=== PATIENT | female | born 1970 | race Caucasian/White ===

== ENCOUNTER 2020-10-11 04:37 | Inpatient (IN) ==
[2020-10-11 05:28] LABS: Basophils % 0.3 % (0.0-0.8); Hematocrit 44.6 VOL% (35.7-47.0); Hemoglobin 14.6 GM/DL (12.0-16.0); Immature Granulocytes % 0.8 %; Immature Granulocytes Absolute 0.03 #; Lymphocytes # 0.8 10*3/uL (1.4-4.0); Lymphocytes % 23.6 % (21.3-54.2); Mean Corpuscular HGB Conc 32.7 GM/DL (32-36); Mean Corpuscular Volume 90.3 FL (87-102); Mean Platelet Volume 10.8 FL (9.6-12.0); Monocytes % 9.3 % (1.7-12.7); Platelet Count 109 T/CUMM (130-400); Red Blood Count 4.94 MC/CUMM (3.8-5.5); White Blood Count 3.6 T/CUMM (4-12)
[2020-10-11 05:33] LABS: INR 0.9; Partial Thromboplastin Time 35.3 SECS (23.9-33.8)
[2020-10-11 05:44] LABS: Albumin 3.5 G/DL (3.4-5.0); Bilirubin,Total 0.9 MG/DL (0.20-1.00); Calcium 8.2 MG/DL (8.5-10.1); Osmolality,Calculated 266.2 MOS/KG (273-304); Potassium 4.2 MMOL/L (3.5-5.1); Total Protein 6.9 G/DL (6.4-8.2)
[2020-10-11] MEDS ORDERED: SODIUM CHLORIDE 0.9% 1,000 ML IV STA (05:52)
[2020-10-11] MEDS ORDERED: LEVOFLOXACIN INJ 750 MG/150 ML PREMIX IV STA (05:52)
[2020-10-11] MEDS ORDERED: DEXAMETHASONE 4 MG/1 ML VIAL IV STA (05:52)
[2020-10-11] MEDS ORDERED: DEXTROSE 50% 25 GM/50 ML VIAL IV PRN (07:36)
[2020-10-11] MEDS ORDERED: MELATONIN 3 MG TABLET PO PRN (07:36)
[2020-10-11] MEDS ORDERED: GLUCAGON 1 MG VIAL IM PRN (07:36)
[2020-10-11] MEDS ORDERED: ONDANSETRON 4 MG/2 ML VIAL IV PRN (07:37)
[2020-10-11] MEDS ORDERED: ACETAMINOPHEN 325 MG TABLET PO PRN (07:37)
[2020-10-11] MEDS ORDERED: BISACODYL 5 MG TABLET PO PRN (07:37)
[2020-10-11] MEDS ORDERED: NICOTINE 21 MG/24 HR PATCH TRANSDERM PRN (07:44)
[2020-10-11] MEDS: ENOXAPARIN 40 MG/0.4 ML SYRINGE SUBCUT SCH (08:21)
[2020-10-11] MEDS: SODIUM CHLORIDE 0.9% 1,000 ML IV SCH (08:21)
[2020-10-11] MEDS: DEXAMETHASONE 4 MG/1 ML VIAL IV SCH (08:49)
[2020-10-11] MEDS: CHOLECALCIFEROL 1,000 UNIT TABLET PO SCH (08:50)
[2020-10-11] MEDS: FAMOTIDINE 20 MG TABLET PO SCH ×2 (08:50→21:30)
[2020-10-11] MEDS: ASCORBIC ACID 500 MG TABLET PO SCH ×2 (08:50→21:30)
[2020-10-11] MEDS: CETIRIZINE 10 MG TABLET PO SCH (08:51)
[2020-10-11] MEDS: ZINC GLUCONATE 50 MG TABLET PO SCH (08:51)
[2020-10-11] MEDS ORDERED: PNEUMOCOCCAL VACCINE (13 VALENT) 0.5 ML SYRINGE IM ONE (10:00)
[2020-10-11] MEDS ORDERED: REMDESIVIR 200 MG in SODIUM CHLORIDE 0.9% 210 ML IV ONE (10:00)
[2020-10-11] MEDS: PRAMIPEXOLE 0.25 MG TABLET PO SCH (21:31)
[2020-10-12 05:17] LABS: Hematocrit 39.3 VOL% (35.7-47.0); Immature Granulocytes % 0.6 %; Immature Granulocytes Absolute 0.02 #; Lymphocytes # 1.2 10*3/uL (1.4-4.0); Lymphocytes % 37.9 % (21.3-54.2); Mean Corpuscular HGB Conc 32.1 GM/DL (32-36); Monocytes % 12.7 % (1.7-12.7); Neutrophils % 48.8 % (38.7-73.9); Red Blood Count 4.27 MC/CUMM (3.8-5.5); Red Cell Distribution Width 15.2 % (9.3-17.3); White Blood Count 3.2 T/CUMM (4-12)
[2020-10-12 05:36] LABS: Hemoglobin 12.6 GM/DL (12.0-16.0)
[2020-10-12 05:37] LABS: Platelet Count 113 T/CUMM (130-400)
[2020-10-12 05:40] LABS: Osmolality,Calculated 278.3 MOS/KG (273-304); Potassium 4.1 MMOL/L (3.5-5.1)
[2020-10-12 05:42] LABS: Ferritin 93.6 ng/ml (8-252)
[2020-10-12] MEDS: SODIUM CHLORIDE 0.9% 1,000 ML IV SCH (05:51)
[2020-10-12 06:13] LABS: Hypochromasia 1+; Microcytosis 1+; Platelet Estimate Adequate
[2020-10-12] MEDS ORDERED: ALBUTEROL INHALER 18 GM INH PRN (06:55)
[2020-10-12] MEDS ORDERED: NF- (Umeclidinium-Vilanterol [Anoro Ellipta] 62.5-25 mcg/actuation Bl INH SCH (07:00)
[2020-10-12] MEDS ORDERED: SODIUM CHLORIDE 0.9% 1,000 ML IV PRN ×2 (09:50→09:51)
[2020-10-12] MEDS: ASCORBIC ACID 500 MG TABLET PO SCH ×2 (10:18→20:31)
[2020-10-12] MEDS: DEXAMETHASONE 4 MG/1 ML VIAL IV SCH (10:18)
[2020-10-12] MEDS: FAMOTIDINE 20 MG TABLET PO SCH ×2 (10:18→20:31)
[2020-10-12] MEDS: ENOXAPARIN 40 MG/0.4 ML SYRINGE SUBCUT SCH (10:18)
[2020-10-12] MEDS: CETIRIZINE 10 MG TABLET PO SCH (10:19)
[2020-10-12] MEDS: ZINC GLUCONATE 50 MG TABLET PO SCH (10:19)
[2020-10-12] MEDS: CHOLECALCIFEROL 1,000 UNIT TABLET PO SCH (10:19)
[2020-10-12] MEDS: LEVOFLOXACIN INJ 750 MG/150 ML PREMIX IV SCH (10:55)
[2020-10-12] MEDS: REMDESIVIR 100 MG in SODIUM CHLORIDE 0.9% 100 ML IV SCH (12:54)
[2020-10-12 14:24] LABS: Folate 11.94 NG/ML (5.38-24.0)
[2020-10-12 18:59] VITALS: BP 98/78
[2020-10-12] MEDS: PRAMIPEXOLE 0.25 MG TABLET PO SCH (20:31)
[2020-10-13] MEDS: SODIUM CHLORIDE 0.9% 1,000 ML IV SCH ×2 (02:07→07:59)
[2020-10-13 05:45] LABS: Basophils % 0.3 % (0.0-0.8); Hematocrit 40.6 VOL% (35.7-47.0); Hemoglobin 12.5 GM/DL (12.0-16.0); Immature Granulocytes % 0.5 %; Immature Granulocytes Absolute 0.02 #; Lymphocytes # 1.6 10*3/uL (1.4-4.0); Lymphocytes % 40.5 % (21.3-54.2); Mean Corpuscular HGB Conc 30.8 GM/DL (32-36); Mean Corpuscular Volume 94.6 FL (87-102); Mean Platelet Volume 10.6 FL (9.6-12.0); Monocytes % 13.7 % (1.7-12.7); Platelet Count 148 T/CUMM (130-400); Red Blood Count 4.29 MC/CUMM (3.8-5.5); Red Cell Distribution Width 15.4 % (9.3-17.3); White Blood Count 3.9 T/CUMM (4-12)
[2020-10-13 05:54] LABS: Calcium 8.4 MG/DL (8.5-10.1); Osmolality,Calculated 276.4 MOS/KG (273-304); Potassium 4.1 MMOL/L (3.5-5.1)
[2020-10-13 06:13] LABS: Lymphocytes 40 % (20-55); Platelet Estimate Normal; Segmented Neutrophils 51 % (50-85); Total Cells Counted 100
[2020-10-13] MEDS: LEVOFLOXACIN INJ 750 MG/150 ML PREMIX IV SCH (08:35)
[2020-10-13] MEDS: ENOXAPARIN 40 MG/0.4 ML SYRINGE SUBCUT SCH ×2 (08:36→21:28)
[2020-10-13] MEDS: CHOLECALCIFEROL 1,000 UNIT TABLET PO SCH (08:37)
[2020-10-13] MEDS: CETIRIZINE 10 MG TABLET PO SCH (08:37)
[2020-10-13] MEDS: ASCORBIC ACID 500 MG TABLET PO SCH ×2 (08:37→21:28)
[2020-10-13] MEDS: DEXAMETHASONE 4 MG/1 ML VIAL IV SCH (08:37)
[2020-10-13] MEDS: FAMOTIDINE 20 MG TABLET PO SCH ×2 (08:37→21:28)
[2020-10-13] MEDS: ZINC GLUCONATE 50 MG TABLET PO SCH (08:38)
[2020-10-13] MEDS: REMDESIVIR 100 MG in SODIUM CHLORIDE 0.9% 100 ML IV SCH (12:18)
[2020-10-13] MEDS: PRAMIPEXOLE 0.25 MG TABLET PO SCH (21:28)
[2020-10-14 05:56] LABS: Basophils % 0.3 % (0.0-0.8); Hematocrit 38.3 VOL% (35.7-47.0); Hemoglobin 12.1 GM/DL (12.0-16.0); Immature Granulocytes % 0.3 %; Immature Granulocytes Absolute 0.01 #; Lymphocytes # 1.8 10*3/uL (1.4-4.0); Lymphocytes % 50.7 % (21.3-54.2); Mean Corpuscular HGB Conc 31.6 GM/DL (32-36); Mean Corpuscular Volume 92.1 FL (87-102); Mean Platelet Volume 10.3 FL (9.6-12.0); Monocytes % 13.5 % (1.7-12.7); Neutrophils % 35.2 % (38.7-73.9); Platelet Count 173 T/CUMM (130-400); Red Blood Count 4.16 MC/CUMM (3.8-5.5); Red Cell Distribution Width 15.3 % (9.3-17.3); White Blood Count 3.5 T/CUMM (4-12)
[2020-10-14 06:14] LABS: Calcium 8.1 MG/DL (8.5-10.1); Ferritin 61.4 ng/ml (8-252); Osmolality,Calculated 276.4 MOS/KG (273-304); Potassium 3.8 MMOL/L (3.5-5.1)
[2020-10-14 06:46] LABS: Band Neutrophils 1 % (0-10); Lymphocytes 45 % (20-55); Platelet Estimate Normal; Segmented Neutrophils 38 % (50-85); Total Cells Counted 100
[2020-10-14 06:47] LABS: Anisocytosis 1+; Macrocytosis 1+
[2020-10-14] MEDS: SODIUM CHLORIDE 0.9% 1,000 ML IV SCH ×3 (07:26→19:00)
[2020-10-14] MEDS: LEVOFLOXACIN INJ 750 MG/150 ML PREMIX IV SCH (08:10)
[2020-10-14] MEDS: ENOXAPARIN 40 MG/0.4 ML SYRINGE SUBCUT SCH ×2 (08:11→20:05)
[2020-10-14] MEDS: DEXAMETHASONE 4 MG/1 ML VIAL IV SCH (08:11)
[2020-10-14] MEDS: CHOLECALCIFEROL 1,000 UNIT TABLET PO SCH (08:12)
[2020-10-14] MEDS: ZINC GLUCONATE 50 MG TABLET PO SCH (08:12)
[2020-10-14] MEDS: FAMOTIDINE 20 MG TABLET PO SCH ×2 (08:12→20:05)
[2020-10-14] MEDS: ASCORBIC ACID 500 MG TABLET PO SCH ×2 (08:12→20:05)
[2020-10-14] MEDS: CETIRIZINE 10 MG TABLET PO SCH (08:13)
[2020-10-14] MEDS: REMDESIVIR 100 MG in SODIUM CHLORIDE 0.9% 100 ML IV SCH (14:08)
[2020-10-14] MEDS: PRAMIPEXOLE 0.25 MG TABLET PO SCH (20:05)
[2020-10-15 06:29] LABS: Basophils % 0.3 % (0.0-0.8); Eosinophils % 0.3 % (0.00-10.9); Hematocrit 38.3 VOL% (35.7-47.0); Hemoglobin 12.3 GM/DL (12.0-16.0); Immature Granulocytes % 0.3 %; Immature Granulocytes Absolute 0.01 #; Lymphocytes # 1.9 10*3/uL (1.4-4.0); Mean Corpuscular HGB Conc 32.1 GM/DL (32-36); Mean Corpuscular Volume 91.8 FL (87-102); Mean Platelet Volume 10.5 FL (9.6-12.0); Monocytes % 10.2 % (1.7-12.7); Neutrophils % 40.9 % (38.7-73.9); Platelet Count 194 T/CUMM (130-400); Red Blood Count 4.17 MC/CUMM (3.8-5.5); Red Cell Distribution Width 15.1 % (9.3-17.3); White Blood Count 3.9 T/CUMM (4-12)
[2020-10-15 06:58] LABS: Potassium 3.4 MMOL/L (3.5-5.1)
[2020-10-15 07:58] LABS: Hypochromasia Slight; Microcytosis 1+; Ovalocytes Slight; Platelet Estimate Adequate
[2020-10-15] MEDS: ENOXAPARIN 40 MG/0.4 ML SYRINGE SUBCUT SCH ×2 (09:33→21:18)
[2020-10-15] MEDS: ZINC GLUCONATE 50 MG TABLET PO SCH (09:33)
[2020-10-15] MEDS: FAMOTIDINE 20 MG TABLET PO SCH ×2 (09:33→21:18)
[2020-10-15] MEDS: DEXAMETHASONE 4 MG/1 ML VIAL IV SCH (09:33)
[2020-10-15] MEDS: CHOLECALCIFEROL 1,000 UNIT TABLET PO SCH (09:33)
[2020-10-15] MEDS: ASCORBIC ACID 500 MG TABLET PO SCH ×2 (09:33→21:18)
[2020-10-15] MEDS: CETIRIZINE 10 MG TABLET PO SCH (09:34)
[2020-10-15] MEDS: LEVOFLOXACIN INJ 750 MG/150 ML PREMIX IV SCH (10:01)
[2020-10-15] MEDS: REMDESIVIR 100 MG in SODIUM CHLORIDE 0.9% 100 ML IV SCH (11:36)
[2020-10-15] MEDS: PRAMIPEXOLE 0.25 MG TABLET PO SCH (21:18)
[2020-10-15] MEDS ORDERED: OXYMETAZOLINE 0.05% NASAL SPRAY 15 ML BOTTLE BOTH NARES PRN (23:23)
[2020-10-16 05:45] LABS: Basophils % 0.2 % (0.0-0.8); Hematocrit 38.5 VOL% (35.7-47.0); Hemoglobin 11.7 GM/DL (12.0-16.0); Immature Granulocytes % 0.4 %; Immature Granulocytes Absolute 0.02 #; Lymphocytes % 37.5 % (21.3-54.2); Mean Corpuscular HGB Conc 30.4 GM/DL (32-36); Mean Corpuscular Volume 93.7 FL (87-102); Mean Platelet Volume 10.1 FL (9.6-12.0); Monocytes % 9.5 % (1.7-12.7); Neutrophils % 52.4 % (38.7-73.9); Platelet Count 242 T/CUMM (130-400); Red Blood Count 4.11 MC/CUMM (3.8-5.5); Red Cell Distribution Width 14.8 % (9.3-17.3); White Blood Count 5.4 T/CUMM (4-12)
[2020-10-16 06:22] LABS: Calcium 8.5 MG/DL (8.5-10.1); Osmolality,Calculated 282.3 MOS/KG (273-304)
[2020-10-16 06:29] LABS: Potassium 3.9 MMOL/L (3.5-5.1)
[2020-10-16 06:31] LABS: Anisocytosis 1+; Platelet Estimate Normal; Spherocytes Few
[2020-10-16 06:32] LABS: Macrocytosis Slight
[2020-10-16] MEDS: DEXAMETHASONE 4 MG/1 ML VIAL IV SCH (10:15)
[2020-10-16] MEDS: FAMOTIDINE 20 MG TABLET PO SCH (10:16)
[2020-10-16] MEDS: ZINC GLUCONATE 50 MG TABLET PO SCH (10:16)
[2020-10-16] MEDS: CETIRIZINE 10 MG TABLET PO SCH (10:16)
[2020-10-16] MEDS: CHOLECALCIFEROL 1,000 UNIT TABLET PO SCH (10:16)
[2020-10-16] MEDS: ASCORBIC ACID 500 MG TABLET PO SCH (10:16)
[2020-10-16] MEDS: LEVOFLOXACIN INJ 750 MG/150 ML PREMIX IV SCH (10:38)
[2020-10-16] MEDS: ENOXAPARIN 40 MG/0.4 ML SYRINGE SUBCUT SCH (10:39)
== END 2020-10-16 17:47 | disposition home or self-care (01) | DRG 137 ==
LOC: N.ED 04:37 → SUATTDRO 07:36 → N.EDINP 07:36 → N.CC 09:02
PROVIDERS: ADMIT Internal Medicine; ATTEND Phlebology